=== PATIENT | female | born 1945 | race Caucasian/White ===

== ENCOUNTER → 2019-12-19 | Outpatient (CLI) | payer OTHER | LOC: LAB 07:48 | PROVIDERS: ATTEND Pediatrics | DX: Z01.812 Encounter for preprocedural laboratory examination (principal); Z20.828 Contact with and (suspected) exposure to other viral communicable diseases; R91.8 Other nonspecific abnormal finding of lung field; I70.0 Atherosclerosis of aorta; I25.10 Atherosclerotic heart disease of native coronary artery without angina pectoris; J98.4 Other disorders of lung; J43.9 Emphysema, unspecified ==

== ENCOUNTER 2019-12-31 09:37 | Inpatient (IN) | payer OTHER ==
[~2019-12-31] VITALS: Ht 154.9 cm; Wt 52.6 kg
[~2019-12-31 09:37] MED LIST: CLOPIDOGREL75 MG PO; LISINOPRIL20 MG PO; NEURONTIN 300M300 M2 PO; PROAIR HFA8.5 GM INH; VENTOLIN HFA INH8 GM INH; ZOCOR 20 MG TAB20 M1 PO
[2019-12-31 10:56] VITALS: BP 144/81
[2019-12-31 16:30] VITALS: BP 144/81
[2019-12-31 17:58] LABS: HEMATOCRIT 34.4 % (37.0-47.0); HEMOGLOBIN 11.6 gm/dL (12.0-15.0); MCH 30.7 pg (26.0-34.0); MCHC 33.9 g/dL (28.0-37.0); MCV 90.7 fL (80.0-100.0); RBC 3.79 mil/uL (4.20-5.00); RDW 14.2 % (10.5-14.5); WBC 6.6 thou/uL (4.0-11.0)
[2019-12-31 18:06] LABS: POTASSIUM 4.1 mmol/L (3.5-5.1)
--- NOTE | 2019-12-31 19:17 | NUR ---
PT CARE ASSUMED AT 1630. ASSESSMENT CHARTED. MEDICATION CHARTED. CHEST TUBE; LT POSTERIOR; -20; NO ACCUMULATION. AO X 4. LT SUBCLAVIAN PACEMAKER; NOT CURRENTLY PACING. 3 LPM NC AT HOME. RFA IV NS 75 ML/HR. BSC IF PAIN ALLOWS.
[2019-12-31 20:30] VITALS: BP 126/46
[2020-01-01 00:45] VITALS: BP 122/45
[2020-01-01 04:44] VITALS: BP 146/60
[2020-01-01 05:30] LABS: HEMATOCRIT 31.4 % (37.0-47.0); HEMOGLOBIN 10.5 gm/dL (12.0-15.0); MCH 30.5 pg (26.0-34.0); MCHC 33.4 g/dL (28.0-37.0); MCV 91.1 fL (80.0-100.0); RBC 3.45 mil/uL (4.20-5.00); RDW 14.3 % (10.5-14.5); WBC 6.5 thou/uL (4.0-11.0)
[2020-01-01 05:41] LABS: CALCIUM 8.4 mg/dL (8.5-10.1); CREATININE 1.3 mg/dL (0.6-1.0); POTASSIUM 4.4 mmol/L (3.5-5.1)
--- NOTE | 2020-01-01 08:24 | NUR ---
assumed pt care at the change of shift, pt is awake, alert and orientedx4, sr on the monitor, chest tube site clean dry and intact, ct site dressing reinforced, no drainage, c/o pain of a 7/10 on the left posterior chest, medications given as ordered with partial relief, denies having concerns, no acute distress noted, passed on report to day nurse
[2020-01-01 08:33] VITALS: BP 152/78
[2020-01-01 15:38] VITALS: BP 141/61
--- NOTE | 2020-01-01 18:43 | NUR ---
ASSUMED CARE AT CHANGE OF SHIFT, ALERT X4, DENIES CHEST PAIN, DENIES SOB. CHEST TUBE SUCTION CAP REMOVED BY DR SHIN. AFTERNOON CHEST XRAY COMPLETED NOTED NO PNEUMOTHORAX. PT WILL DC TOMORROW IF REMAIN MEDICALLY STABLE. FALL PRECAUTIONS IN PLACE. CALLS FOR ASSISTANCE. CONTINENT OF BLADDER NO BM TODAY.
[2020-01-01 20:49] VITALS: BP 120/47
[2020-01-02 02:59] VITALS: BP 135/51
--- NOTE | 2020-01-02 05:01 | NUR ---
SLEPT MOST OF SHIFT. DENIES COMPLAINTS OF PAIN OR SHORTNESS OF AIR. TOLERATED CHEST TUBE TO H2O SEAL THIS SHIFT. APPEARS CALM WITHOUT DISTRESS. WORKING ON GOALS AND PLAN OF CARE FOR NOC. PROGRESSING SLOWLY TOWARDS DISCHARGE GOALS. CONTINUE TO ASSES CLOSELY.
[2020-01-02 11:36] VITALS: BP 148/49
--- NOTE | 2020-01-02 13:05 | NUR ---
ASSUMED CARE PT SHIFT CHANGE.ASSESSMENTS CHARTED.MEDS GIVEN PER JUN. PT ALERT AND ORIENTED.VSS. DENIES PAIN. UPON ASSESSMENT CHEST TUBE WAS FOUND ON FLOOR AND NO LONGER IN PT. PT WAS BREATHING WELL WITH NO TROUBLES. O2 SATS WNL. PHYSICIAN NOTIFIED. CXR ORDERED. REFER TO RESULTS. CHEST TUBE SITE STITCHES REMOVED, DRESSING PLACE WITH TEGADERM. DC ORDERS ACKNOWLEDGED AND IMPLEMENTED. DC PAPERWORK DISCUSSED WITH PT. COMMUNICATES UNDERSTANDING. IV REMOVED. TELE REMOVED. PT LEFT UNIT WITH ALL BELONGINGS.
--- NOTE | 2020-01-02 16:06 | PATH ---
[facility] [place] [address] [address] PATHOLOGY RPT PROCEDURE Name: YANIRA MALCOLM Room #: 211-P DIS IN M.R.#: [id number] Admission: 12/31/19 Date of : 49 Discharge: 01/02/20 Report #: [id number] Path Case #: [id number] Note [facility] Accession Number: [id number] TESTS RESULT FLAG UNITS REF RANGE LAB Clinician Provided Cytology Information No. of containers..01 Other (Miscellaneous) Source: LT BAL DIAGNOSIS: LT BAL INCONCLUSIVE. THIS INTERPRETATION INCLUDES EVALUATION OF A CELL BLOCK. RARE GROUPS OF MARKEDLY ATYPICAL CELLS, SUSPICIOUS FOR NEOPLASIA. Comment: The concurrent biopsy tissue, [id number] showed malignant cells and is pending at the time of this report due to additional stains. The scant nature of the atypical cells within the current sample precludes a definitive interpretation. Please refer to a separate report for details. Dr. Nellie Cui has seen health and safety representative slides of this case and concurs with my interpretation. Pathologist ICD10: 02 R91.8 Signed out by: Kathy Ruth MD, Pathologist NPI- [id number] Performed by: Janeen Goodwin, Gold Nib Grinder (ASCP) Gross description: 01 25ML, RED, 1TP, 1CB /LCS 01/01/2020 0747 Local FLAG LEGEND: L-Low Normal,H-High Normal,LL-Alert Low,HH-Alert High <-Panic Low,>-Panic High,A-Abnormal,AA-Critical Abnormal Performed at: 01 [facility] [address] [place] [address] Mio Patel MD, [address] [address] Kathy Ruth MD, Specimen Comment: A courtesy copy of this report has been sent to [phone] Specimen Comment: [phone], [address] [address] PATHOLOGY RPT PROCEDURE Name: YANIRA MALCOLM Room #: 211-P DIS IN M.R.#: [id number] Admission: 12/31/19 Date of : 49 Discharge: 01/02/20 Report #: [id number] Path Case #: [id number] Specimen Comment: Report sent to ,DR OLIVO / DR WANG Specimen Comment: A duplicate report has been generated due to demographic updates. Performed at: 01 [facility] [place] [address], [place], [place] [id number] MD Mio Patel MD Phone: [phone]
--- NOTE | 2020-01-03 09:53 | PATH ---
[facility] [place] [place] [address] PATHOLOGY RPT PROCEDURE Name: YANIRA MALCOLM Room #: 211-P DIS IN M.R.#: [id number] Admission: 12/31/19 Date of : 49 Discharge: 01/02/20 Report #: [id number] Path Case #: [id number] Note [facility] Accession Number: [id number] TESTS RESULT FLAG UNITS REF RANGE LAB Clinician Provided Cytology Information No. of containers..01 Other (Miscellaneous) Source: LT LUNG DIAGNOSIS: LT LUNG INCONCLUSIVE. THIS INTERPRETATION INCLUDES EVALUATION OF A CELL BLOCK. SCATTERED GROUPS OF MARKEDLY ATYPICAL CELLS, SUSPICIOUS FOR NEOPLASIA. Comment: The concurrent biopsy tissue [id number] is pending at the time of this report due to additional stains. It shows malignant cells resembling the ones noted in the current sample. The scant nature of these cells in the current sample precludes a definitive interpretation. Please refer to a separate report for details. Dr. Nellie Cui has seen this case and concurs with my interpretation. Pathologist ICD10: 02 R91.8 Signed out by: Kathy Ruth MD, Pathologist NPI- [id number] Performed by: Janeen Goodwin, Face Hardener (ASCP) Gross description: 01 20ML, COLORLESS, 1TP, 1CB /LCS 01/01/2020 0744 Local FLAG LEGEND: L-Low Normal,H-High Normal,LL-Alert Low,HH-Alert High <-Panic Low,>-Panic High,A-Abnormal,AA-Critical Abnormal Performed at: 01 [facility] [address] [place] [address] Mio Patel MD, [address] [address] Kathy Ruth MD, Specimen Comment: A courtesy copy of this report has been sent to [phone] Specimen Comment: [phone], [address] [address] PATHOLOGY RPT PROCEDURE Name: YANIRA MALCOLM Room #: 211-P DIS IN M.R.#: [id number] Admission: 12/31/19 Date of : 49 Discharge: 01/02/20 Report #: [id number] Path Case #: [id number] Specimen Comment: Report sent to ,DR OLIVO / DR WANG Specimen Comment: A duplicate report has been generated due to demographic updates. Performed at: 01 [facility] [address], [place], [place] [id number] MD Mio Patel MD Phone: [phone]
--- NOTE | 2020-01-03 11:07 | PATH ---
[facility] [place] [address] PATHOLOGY RPT PROCEDURE Name: GOLDKELLY DANDRE Room #: 211-P [facility] IN M.R.#: [id number] Admission: 12/31/19 Date of : 49 Discharge: 01/02/20 Report #: [id number] Path Case #: [id number] [facility] Accession Number: [id number] . 01 Material submitted: . PART A: bronchus - LLL FORCEPS BIOPSY, 1251. Modifiers: left, lower lobe PART B: bronchus - FABIOLA FORECEPS BIOPSY, 1315. Modifiers: left, upper lobe PART C: bronchus - FABIOLA FORECEPS BIOPSY SITE #2, 2754. Modifiers: left, upper lobe . 01 Clinical history: . LUNG MASS . 02 Diagnosis: A. Lung, left lower lobe, forceps biopsy: - DETACHED MARKEDLY ATYPICAL GLANDULAR EPITHELIAL FRAGMENTS COMPATIBLE WITH ATYPICAL ADENOMATOUS HYPERPLASIA, SEE COMMENT. . B. Lung, left upper lobe, forceps biopsy: - POSITIVE FOR MALIGNANCY; MODERATELY DIFFERENTIATED ADENOCARCINOMA, SEE COMMENT. . C. Lung, left upper lobe #2, forceps biopsy: - Benign alveolated lung tissue along with benign bronchial epithelial fragments. - Mild chronic inflammation along with pulmonary macrophages. - Negative for malignancy. (IUV:pit 01/02/2020) QTP 01/02/2020 1509 Local . 02 Comment: Multiple properly controlled immunohistochemical stains are performed on blocks A1, B1, and C1. The stains are interpreted as follows within the neoplastic cells: TTF-1 on block A1 - Strong nuclear reactivity present NAPSIN A on block A1 - Granular reactivity present P40 on block A1 - Nonreactive P63 on block A1 - Nonreactive TTF-1 on block B1 - Strong nuclear reactivity present NAPSIN A on block B1 - Granular reactivity present P40 on block B1 - Nonreactive P63 on block B1 - Nonreactive TTF-1 on block C1 - No atypical cells identified (only chronic inflammation and macrophages present) P63 on block C1 - No atypical cells identified (only chronic inflammation and macrophages present) . [address] [address] PATHOLOGY RPT PROCEDURE Name: KELLY MALCOLM Room #: 211-P [facility] IN M.R.#: [id number] Admission: 12/31/19 Date of : 49 Discharge: 01/02/20 Report #: [id number] Path Case #: [id number] Co-review: Health Care Sanitary Technician H and E slides were co-reviewed by Dr. Nellie Cui who concurs with my diagnosis. . Findings of this case are conveyed to Dr. Seth Garcia at approximately 2:00 pm on 01/02/2020. (IUV:pit 01/02/2020) . 02 Electronically signed: . Kathy Ruth MD, Pathologist NPI- [id number] . 01 Gross description: . A. The specimen is received in formalin, labeled "Kellysatya Mcbridecher, LLL biopsy". Received are multiple segments of pale acosta tissue admixed with blood coagulum measuring 0.7 x 0.7 x 0.1 cm in aggregate dimensions. The specimen is filtered and entirely submitted in cassette A1. . B. The specimen is received in formalin, labeled "Kelly Gold, FABIOLA biopsy". Received are multiple segments of pale acosta tissue admixed with a slight amount of blood coagulum measuring 0.4 x 0.4 x 0.2 cm in aggregate dimensions. The specimen is filtered and entirely submitted in cassette B1. . C. The specimen is received in formalin, labeled "Kellysatya McbridecherFABIOLA spot (2) biopsy". Received are multiple segments of red-brown tissue measuring 0.6 x 0.5 x 0.1 cm in aggregate dimensions. The specimen is filtered and entirely submitted in cassette C1. (CAA; 01/01/2020) QA/QA 01/01/2020 1657 Local . 02 Pathologist provided ICD-10: C34.12, J98.4, R91.8 . 02 CPT . 801484, 161156, 295662, E12236, J41296 Specimen Comment: A courtesy copy of this report has been sent to [phone] Specimen Comment: [phone], Specimen Comment: Report sent to ,DR OLIVO / DR WANG Performed at: [address] [facility], [place], [place] [id number] MD Mio Patel MD Phone: [phone] Performed at: [address] [id number] MD Kathy Ruth MD Phone: [phone]
== END 2020-01-02 13:07 | disposition home or self-care (01) | DRG 199 ==
LOC: OR → TBA 09:39 → OR 11:01 → 2N 16:35
PROVIDERS: ADMIT Hospitalist; ATTEND Internal Medicine
PROC: 0BJ08ZZ Inspection of Tracheobronchial Tree, Via Natural or Artificial Opening Endoscopic (ICD-10-PCS; principal; 2019-12-31)
PROC: 8E0WXBF Computer Assisted Procedure of Trunk Region, With Fluoroscopy (ICD-10-PCS; principal; 2019-12-31)
PROC: 0B9J8ZX Drainage of Left Lower Lung Lobe, Via Natural or Artificial Opening Endoscopic, Diagnostic (ICD-10-PCS; principal; 2019-12-31)
PROC: 0W9B30Z Drainage of Left Pleural Cavity with Drainage Device, Percutaneous Approach (ICD-10-PCS; principal; 2019-12-31)
PROC: 0BDB8ZX Extraction of Left Lower Lobe Bronchus, Via Natural or Artificial Opening Endoscopic, Diagnostic (ICD-10-PCS; principal; 2019-12-31)
DX: J95.811 Postprocedural pneumothorax (principal); J96.22 Acute and chronic respiratory failure with hypercapnia; J96.21 Acute and chronic respiratory failure with hypoxia; R91.8 Other nonspecific abnormal finding of lung field; J44.9 Chronic obstructive pulmonary disease, unspecified; F17.210 Nicotine dependence, cigarettes, uncomplicated; G58.9 Mononeuropathy, unspecified; G47.00 Insomnia, unspecified; R63.5 Abnormal weight gain; I10 Essential (primary) hypertension; Z96.1 Presence of intraocular lens; E78.5 Hyperlipidemia, unspecified; I73.9 Peripheral vascular disease, unspecified; Y83.8 Other surgical procedures as the cause of abnormal reaction of the patient, or of later complication, without mention of misadventure at the time of the procedure; Y82.8 Other medical devices associated with adverse incidents; Z88.0 Allergy status to penicillin; Z88.1 Allergy status to other antibiotic agents; Z88.2 Allergy status to sulfonamides; Z95.0 Presence of cardiac pacemaker; Z98.42 Cataract extraction status, left eye; Z98.41 Cataract extraction status, right eye; Z90.49 Acquired absence of other specified parts of digestive tract; Z68.21 Body mass index [BMI] 21.0-21.9, adult; Z20.828 Contact with and (suspected) exposure to other viral communicable diseases
CPT/HCPCS: 10081; 62110; 62900; 70005